=== PATIENT | female | born 1985 | race Asian ===

== ENCOUNTER 2017-03-26 13:16 | Day surgery (SDC) | payer OTHER ==
[2017-03-26] VITALS (8 sets, daily range): BP systolic 104–127; BP diastolic 48–76; PULSE 70–99; RESP 14–19; O2SAT 94–99
[~2017-03-26] VITALS: Ht 160 cm; Wt 85.3 kg
[~2017-03-26 13:16] MED LIST: CeFAZolin 2 Gm/50 mL D5W IV Premix IV ONE; GUAI120L57 PO; Lactated Ringer's 1,000 ML IV ONE; Lactated Ringer's 1,000 ML IV SCH
[2017-03-26] MEDS ORDERED: Propofol 10,000 mCg/mL 20 mL Inj ONE (13:17)
[2017-03-26] MEDS ORDERED: Dexamethasone 4 mg/mL Inj ONE (13:17)
[2017-03-26] MEDS ORDERED: Ondansetron 2 mg/mL 2 mL Inj ONE (13:17)
[2017-03-26] MEDS ORDERED: Phenylephrine/NS 100 mCg/mL 10 mL Syringe IVPUSH ONE (13:17)
[2017-03-26] MEDS ORDERED: fentaNYL-PF 50 mCg/mL 2 mL Inj ONE (13:17)
[2017-03-26] MEDS ORDERED: MetoCLOpramide 5 mg/mL 2 mL Inj ONE (13:17)
[2017-03-26] MEDS ORDERED: MULT1CAP33 PO (13:38)
[2017-03-26] MEDS ORDERED: Lactated Ringer's 1,000 ML IV SCH (13:42)
[2017-03-26] MEDS ORDERED: Lactated Ringer's 500 ML IV PRN (13:42)
[2017-03-26] MEDS ORDERED: Labetalol 5 mg/mL 4 mL Inj IV PRN (13:45)
[2017-03-26] MEDS ORDERED: fentaNYL-PF 50 mCg/mL 2 mL Inj IVPUSH PRN (13:45)
[2017-03-26] MEDS ORDERED: hydrALAZINE 20 mg/mL Inj IVPUSH PRN (13:45)
[2017-03-26] MEDS ORDERED: Dexamethasone 4 mg/mL Inj IVPUSH PRN (13:45)
[2017-03-26] MEDS ORDERED: HYDROmorphone 1 mg/mL Inj IVPUSH PRN (13:45)
[2017-03-26] MEDS ORDERED: EPHEDrine Sulfate 50 mg/mL Inj IVPUSH PRN (13:45)
[2017-03-26] MEDS ORDERED: Atropine 0.4 mg/mL Inj IVPUSH PRN (13:45)
[2017-03-26] MEDS ORDERED: MetoCLOpramide 5 mg/mL 2 mL Inj IVPUSH PRN (13:45)
[2017-03-26] MEDS ORDERED: Ondansetron 2 mg/mL 2 mL Inj IVPUSH PRN (13:45)
[2017-03-26] MEDS ORDERED: Phenylephrine 10,000 mCg/mL Inj IVPUSH PRN (13:45)
[2017-03-26] MEDS ORDERED: CeFAZolin 2 Gm/50 mL D5W Duplex Bag IV ONE (13:47)
--- NOTE | 2017-03-26 14:07 | PCM.HPANE ---
Patient Data Date of Service: Mar 26, 2017 Surgeon Admitting Provider: Attending Provider:Ryland Givens MD Primary Care Physician:Emelia Brock Other Provider:Nolan Rivera Anesthesia Reason for Visit Right Little Finger Middle Phalanx Fx Ht/WT & BMI Height (Feet): 5 Height (Inches): 3 Weight (Kilograms): 85.3 Body Mass Index 33.00 Allergies Coded Allergies: No Known Allergies (Unverified , 03/26/17) Past Anesthesia History Anesthesia History: Denies:: Fam Anesthesia Reaction, Fam Malignant Hypertherm Diabetes History Hx Diabetes?: No MRSA MRSA: No Medications Hypertension Medication: No Home Meds Incl Beta Cookie: No Reported Medications Multivitamin (Multivitamins)1 Each Capsule1 Each PO DAILY 03/26/17 Discontinued Reported Medications Guaifenesin/Codeine Phosphate (Codeine-Guaifen 10-100 mg/5 ml)120 Ml [id number] Ml PO Q4H PRN prn 03/24/17 History History of ENT Problems?: No HEENT History: Denies:: Abnormal Airway Difficult Intubation Denture Type: None Teeth Condition: Within Normal Limits Hx of Heart Problems?: No Cardiovascular History: Denies:: Heart Murmur Hypertension Hx of Respiratory Problem?: No Respiratory History: Denies:: Use of C-PAP Machine Hx Neurologic Problems?: No Hx of GI Problems?: No Hx of Problems?: No HX of Peritoneal Dialysis: No Female Hx: Denies:: Currently Skin History: Denies:: History Skin Disorders? Pressure Ulcers Hx Musculoskeletal Problems?: Yes Musculoskeletal History: Positive for:: Musculoskeletal Trauma (HX RT KNEE SPRAIN RT LITTLE FINGER MIDDLE PHALANGEAL FX=CURRENT PROBLEM) Hx of Psycho/Social Problems?: No Hx Surgeries?: No Hx Any Other Health Problems?: No Other History: Denies:: Cancer Endocrine Disease Hospitalization Thyroid Disease History Blood Transfusions: Denies:: Blood Transfusions Hx Diabetes: No Hx Alcohol Use: Yes ("SOCIAL")Hx Substance Use: NoHave You Smoked inLast 12 mo : No Stop/Bang S-Snoring: Do You Snore Loudly: No T-Tired: feel tired, fatigued: No O-Obsered: Observed not breath: No P-Blood Pressure: treated: No B- Body Mass Index > 35 kg/m2: No A- Age over 50: No N- Neck Large Circumference: No G- Gender Male: No VENU Total Score: 0 VENU Risk Assessment: Low Risk, <3 Yes Risk Assessment Category Category 1A: Patient has history of documented sleep apnea, and HAS NOT received any narcotic, sedative or anesthesia administration during this stay. Category 1B: Patient has history of documented sleep apnea, and HAS received any narcotic , sedative or anesthesia administration during this stay Category 2: Patient has SUSPECTED Obstructive Sleep Apnea, and HAS received any narcotic , sedative or anesthesia administration during this stay. Category 3: Patient has SUSPECTED Obstructive Sleep Apnea and HAS NOT received narcotic, sedative or anesthesia administration during this stay. Category 4: Outpatient in Procedural Areas with known sleep apnea or who screen positive for High Risk via the STOP/BANG questionnaire. Exam Exam Vital Signs Vital Signs Date Time Temp Pulse Resp B/P Pulse Ox O2 Delivery O2 Flow Rate FiO2 03/26/17 13:39 36.2 70 16 115/76 97 Room Air General Appearance: Alert, Oriented X3, Cooperative HEENT/AIRWAY: MP 2, Neck Movement (full), Mouth Opening (wide) Lungs: Clear to Auscultation, Normal Air Movement Heart: Regular Rate/Rhythm, Normal S1, Normal S2 Meds/Labs/Diagnostics Admission Meds Current Medications Lactated Ringer's (Lr) 1,000 ml @ 0 mls/hr Q0M ONCE IV Last administered on 13:39; Start 03/26/17 at 06:00; Stop 03/26/17 at 06:01; Status DC Diagnositcs urine negative Plan Impression Patient chart reviewed, patient interviewed and anesthestic plan with risks, benefits, and alternatives discussed, and informed consent obtained. NPO per Anesth. Guidelines: Yes ASA Physical Status: ASA1 Normal Healthy Anesthetic Plan: GA Bene/Risks/Altern/Consents: Yes HP Complete Prior to Induction: Yes Matheus Dickson MD Mar 26, 2017 13:42
[2017-03-26] MEDS ORDERED: Bupivacaine-MPF 0.5% 30 mL Inj INFILTRATE ONE (15:00)
--- NOTE | 2017-03-26 17:06 | PCM.ANEP1 ---
Post Anesthesia PACU Phase 1 Assessment Date of Service: Mar 26, 2017 Vital Signs PACU T 36.1, HR 99, O2 98% 10L, RR 12, BP 127/69 Vital Signs Date Time Temp Pulse Resp B/P Pulse Ox O2 Delivery O2 Flow Rate FiO2 03/26/17 13:39 36.2 70 16 115/76 97 Room Air Anesthetic Administered: GA Level of Alertness: Awake, talking [id number]'s with Equal Strength: Yes Pain: No Nausea or Vomiting: No CV Function & Hydration Stable: Yes Airway Device: Oxygen Delivery: Simple Mask Lungs: Normal Air Movement PACU Phase 2 Assessment Complications: No Follow up Care: No Patient Instructions Provided: N/A Matheus Dickson MD Mar 26, 2017 17:06
[2017-03-26] MEDS ORDERED: oxyCODONE-Acetamin 5-325 mg Tablet PO PRN (17:20)
--- NOTE | 2017-03-26 18:26 | OP ---
[address] [address] OPERATIVE REPORT PATIENT: SEAN BOWEN : 1985 MR#: [id number] ADMIT: 03/26/2017 JOB ID: [id number] DATE OF SURGERY: 03/26/2017 PREOPERATIVE DIAGNOSIS(ES): Right little finger comminuted middle phalangeal intra-articular pilon fractures, ICD 10 code S62.626A. POSTOPERATIVE DIAGNOSIS(ES): Right little finger comminuted middle phalangeal intra-articular pilon fractures, ICD 10 code S62.626A. PROCEDURE: Open reduction, internal fixation comminuted right little finger intra-articular middle phalangeal fracture with a fracture at the proximal interphalangeal joint. Pilon-type injury. CPT code 41216. SURGEON: Ryland Givens MD. VITICULTURIST: Fantasma Villanueva PA-C. Fantasma Villanueva was an integral portion of the procedure due to this intricate comminuted intra-articular fracture, requiring additional retraction for the procedure. ANESTHESIA: General. Supplemental metacarpal nerve block for postoperative analgesia. Metacarpal nerve block performed by surgeon. No specimen to Pathology. ESTIMATED BLOOD LOSS: 2 mL. DRAINS: None. COMPLICATIONS: None. IMPLANTS UTILIZED: Synthes 1.3 mm locked mini fragment hand plate. INDICATIONS: This is a 32-year-old, right-hand dominant female who was playing [employer] and her finger was slammed against another player, sustaining a comminuted right little finger intra-articular fracture at the PIP joint. She had large intra-articular fragments as well as a fracture along the shaft. PROCEDURE: After appropriate time-out was called, the right arm was prepped and draped in sterile fashion. The right arm was elevated, exsanguinated, and tourniquet inflated to 250 mmHg. A curvilinear incision was fashioned over the PIP joint in the middle phalanx. Care was taken not to interrupt the central slip extensor mechanism. The fracture was noted to have a horizontal and vertical component to it. With the fracture configuration, this necessitated treating this with a dorsal plate rather than a side plate. The interval between the lateral bands was entered, between the lateral bands and the extensor mechanism. The fracture lines were identified. A 1.3 mm T plate was then cut to fit lengthwise for the fracture. It was also bent to configure to the fracture. It was initially transfixed to the middle phalanx with a 1.3 mm screw after drilling with appropriate drill bit. Additional distal screws placed, drilling and filling with 1.3 mm screws. One locking and one nonlocking screw were utilized. Attention was next turned to the comminuted intra-articular fragments. Those were transfixed with drilling and filling with two 1.3 mm locking screws. Image intensification confirmed good position of the fracture. I did place the finger through a range of motion and it moved accordingly without any motion at the fracture site. Performed a metacarpal nerve block with 0.5% plain Marcaine. The wound was irrigated with saline. Tourniquet was released. Minimal hemostasis required. Soft tissues between the sagittal band and the extensor mechanism were repaired with a few sutures of 5-0 Vicryl. Skin was reapproximated with horizontal mattress sutures of 4-0 nylon. Xeroform dry sterile dressing was applied and patient was placed in an ulnar gutter splint incorporating the ring and little fingers. The patient was taken to recovery room in stable condition. Sponge and needle count correct. No complications. The patient is to keep her splint clean and dry. She has been given a note to go back to work since they do have light duty available where she is employed. The patient needs to keep her splint clean and dry. She should have an appointment with hand therapy for them to make her a hand splint and a finger splint and begin some gentle range of motion to the finger. The patient is fully aware that she will be left with some stiffness in that hand, that little finger. She was discharged to home on Percocet 10 and Keflex 500 mg. She should have an appointment in the office for two weeks and should have a hand therapy appointment for next week. CC: [facility]
== END 2017-03-26 23:59 | disposition home or self-care (01) ==
LOC: SAS 13:16
PROVIDERS: ATTEND Orthopaedic Surgery
DX: S62.626A Displaced fracture of middle phalanx of right little finger, initial encounter for closed fracture (principal); W23.0XXA Caught, crushed, jammed, or pinched between moving objects, initial encounter
CPT/HCPCS: 26746; 73140; J0690; J1100; J2250; J2370; J2405; J2765; J3010; J7120